=== PATIENT | female | born 1980 | race Caucasian/White ===

== ENCOUNTER → 2023-09-14 | Outpatient (CLI) | payer BC ==
[~2023-09-14] MED LIST: Iohexol 300 - 100 ML VIAL IV ONE; NS 100 ML IV SCH
== END ==
LOC: COL.RAD 08:08
DX: Q67.6 Pectus excavatum (principal); E04.2 Nontoxic multinodular goiter; N20.0 Calculus of kidney
CPT/HCPCS: Q9967

== ENCOUNTER → 2024-01-13 | Outpatient (CLI) | payer BC | LOC: COL.RAD 15:12 | DX: E04.1 Nontoxic single thyroid nodule (principal) ==

== ENCOUNTER → 2024-02-03 | Outpatient (CLI) | payer BC ==
[~2024-02-03] VITALS: Ht 167.6 cm; Wt 113.5 kg
[~2024-02-03] MED LIST changes: +ALLEGRA 180MG180 MG PO; +COZAAR 50MG50 MG/TAB PO; -Iohexol 300 - 100 ML VIAL IV ONE; +MOBIC15 MG PO; -NS 100 ML IV SCH; +PRIL40 PO
[2024-02-03 09:50] VITALS: BP 135/89; PULSE 72; TEMP 97.9
[2024-02-03 11:05] VITALS: BP 157/82; PULSE 66
== END ==
LOC: COL.RAD 09:10
DX: E04.2 Nontoxic multinodular goiter (principal)